=== PATIENT | female | born 1995 | race Caucasian/White ===

== ENCOUNTER 2016-06-02 20:09 | Emergency (ER) | payer BC, OTHER ==
[2016-06-02 20:15] VITALS: BP 128/61
--- NOTE | 2016-06-02 22:18 | UC ---
Back Pain HPI - HPI Summary HPI Summary: 21 YO FEMALE WITH RIGHT THORACIC BACK PAIN 2 WKS HURTS WITH LIFTING HURTS WITH DEEP BREATH OR COUGH OR SNEEZE - History of Current Complaint Chief Complaint: UCUpperExtremity Stated Complaint: RIGHT SHOULDER BLADE PAIN Time Seen by Provider: 06/02/16 22:05 Hx Obtained From: Patient Hx Last Menstrual Period: 06/02/16 Onset/Duration: Gradual Onset, Lasting Weeks - 2 Timing: Intermittent, Lasting Hours Severity Initially: Moderate Severity Currently: Mild Pain Intensity: 4 Pain Scale Used: 0-10 Numeric Back Pain: Is Discrete @ - SEE IMAGE Character: Aching, Throbbing, Spasmodic Aggravating: Movement, Lifting, Bending Associated Signs And Symptoms: Positive: Negative - Allergies/Home Medications Allergies/Adverse Reactions: Allergies Allergy/AdvReac Type Severity Reaction Status Date / Time Penicillins Allergy Unknown Unknown Verified 06/02/16 20:15 Reaction Details PMH/Surg Hx/FS Hx/Imm Hx Previously Healthy: Yes Endocrine History Of: Denies: Diabetes Cardiovascular History Of: Denies: Cardiac Disorders Respiratory History Of: Denies: Asthma - Surgical History Surgical History: None - Family History Known Family History: Positive: Hypertension - Social History Alcohol Use: Occasionally Substance Use Type: None Smoking Status (MU): Never Smoked Tobacco - Immunization History Most Recent Influenza Vaccination: none Review of Systems Constitutional: Negative Skin: Negative Eyes: Negative ENT: Negative Respiratory: Negative Cardiovascular: Negative Gastrointestinal: Negative Genitourinary: Negative Motor: Negative Neurovascular: Negative Musculoskeletal: Myalgia Neurological: Negative Psychological: Negative All Other Systems Reviewed And Are Negative: Yes Physical Exam Triage Information Reviewed: Yes Appearance: Well-Appearing, No Pain Distress, Well-Nourished Vital Signs: Initial Vital Signs Temp 98.2 F 06/02/16 20:11 Pulse 65 06/02/16 20:11 Resp 17 06/02/16 20:11 BP 128/61 06/02/16 20:11 Pulse Ox 99 06/02/16 20:11 Vital Signs Reviewed: Yes Eyes: Positive: Conjunctiva Clear ENT: Positive: Hearing grossly normal. Negative: Nasal congestion, Nasal drainage, Trismus, Muffled/hoarse voice Neck: Positive: Supple, Nontender, No Lymphadenopathy Respiratory: Positive: Lungs clear, Normal breath sounds, No respiratory distress, No accessory muscle use Cardiovascular: Positive: RRR, No Murmur Musculoskeletal: Positive: Strength Intact, ROM Intact Neurological: Positive: Alert Psychological Exam: Normal Skin Exam: Normal Back Pain Course/Dx - Differential Dx/Diagnosis Provider Diagnoses: RIGHT RHOMBOID MYOFASCIAL STRAIN /SPASM Discharge - Discharge Plan Condition: Stable Disposition: HOME Prescriptions: Cyclobenzaprine TAB* [Flexeril TAB*] 5 mg PO TID PRN #21 tab PRN Reason: Spasms Patient Education Materials: Thoracic Back Strain (ED) Referrals: Med Ryan MD [Primary Care Provider] - 2 Weeks Additional Instructions: ADVIL 3 PILLS 4X DAY WITH FOOD FOR PAIN PT CONSULT Images Front/Back of Body, Lg ([place]): 1 - TENDER HERE
== END 2016-06-02 22:31 | disposition home or self-care (01) ==
LOC: UCCORT 20:09
DX: S46.811A Strain of other muscles, fascia and tendons at shoulder and upper arm level, right arm, initial encounter (principal); X58.XXXA Exposure to other specified factors, initial encounter; Y93.9 Activity, unspecified; Y92.9 Unspecified place or not applicable; M62.830 Muscle spasm of back; Z88.0 Allergy status to penicillin
CPT/HCPCS: 99202; G0463

== ENCOUNTER 2017-11-15 17:22 | Emergency (ER) | payer SELFPAY ==
[2017-11-15 17:45] VITALS: BP 118/78
--- NOTE | 2017-11-15 18:28 | UC ---
Skin Complaint HPI - HPI Summary HPI Summary: 22-year-old female presents with onset of area of tenderness and erythema to her right lateral upper leg yesterday. States has progressively increased in size today and become more tender. Initially thought was an insect bite but no insect was seen. Denies injury, fevers, chills, or drainage. - History of Current Complaint Chief Complaint: UCSkin Time Seen by Provider: 11/15/17 18:02 Stated Complaint: SKIN CONERN Hx Obtained From: Patient Hx Last Menstrual Period: 11/04/17 ?: No Onset/Duration: Gradual Onset Skin Exposure Onset/Duration: Days Ago - 1 Onset Severity: Mild Current Severity: Mild Pain Intensity: 0 Character: Redness, Painful Aggravating Factor(s): Nothing Alleviating Factor(s): Unknown Associated Signs & Symptoms: Positive: Tenderness. Negative: Fever, Chills, Drainage, Red Streaks - Allergy/Home Medications Allergies/Adverse Reactions: Allergies Allergy/AdvReac Type Severity Reaction Status Date / Time Penicillins Allergy Intermediate Rash Verified 11/15/17 17:45 Home Medications: Home Medications Norgestimate-Ethinyl Estradiol [Sprintec 28 Day Tablet] 1 tab PO DAILY 11/15/17 [History Confirmed 11/15/17] Review of Systems Constitutional: Negative Skin: Other - See history of present illness Respiratory: Negative Motor: Negative Neurovascular: Negative Musculoskeletal: Negative Is Patient Immunocompromised?: No All Other Systems Reviewed And Are Negative: Yes PMH/Surg Hx/FS Hx/Imm Hx - Additional Past Medical History Additional PMH: Noncontributory - Surgical History Surgical History: None - Family History Known Family History: Positive: Hypertension - Social History Occupation: Employed Part-time Lives: With Family Alcohol Use: None Substance Use Type: None Smoking Status (MU): Never Smoked Tobacco - Immunization History Most Recent Influenza Vaccination: none Physical Exam Triage Information Reviewed: Yes Appearance: Well-Appearing, No Pain Distress, Well-Nourished Vital Signs: Initial Vital Signs Temp 99 F 11/15/17 17:40 Pulse 83 11/15/17 17:40 Resp 16 11/15/17 17:40 BP 118/78 11/15/17 17:40 Pulse Ox 99 11/15/17 17:40 Vital Signs Reviewed: Yes Respiratory: Positive: No respiratory distress Cardiovascular: Positive: Pulses Normal, Brisk Capillary Refill Musculoskeletal Exam: Normal Neurological: Positive: Other: - Sensation intact Skin: Positive: Other - 2.5 cm circular area of erythema and induration to right lateral upper leg with a punctate area of excoriation and crusting noted centrally. No fluctuance or drainage noted. Course/Dx - Course Course Of Treatment: 22-year-old female with 1 day history of area of erythema and tenderness to right lateral upper leg consistent with cellulitis versus early abscess. There is a 2.5 cm area of induration without any fluctuance or drainage to be cultured. Patient has history of penicillin allergy with a reaction of rash however due to low incidence of cross reaction I will treat with a seven-day course of cephalexin 500 mg 3 times a day for 7 days. Patient was made aware of the possibility of a cross reaction and knows to seek immediate medical attention in the emergency room should she develop any swelling of the lips, tongue, throat or difficulty breathing. She is to follow- up with her primary care provider in 7 days if she has no improvement or resolution of her symptoms. - Differential Diagnoses - Skin Complaint Differential Diagnoses: Abscess, Cellulitis - Diagnoses Provider Diagnoses: Cellulitis right upper leg Discharge - Sign-Out/Discharge Documenting (check all that apply): Patient Departure - Discharge Plan Condition: Stable Disposition: HOME Prescriptions: Cephalexin CAP* [Keflex 500 CAP*] 500 mg PO TID #21 cap Patient Education Materials: Cellulitis (DC) Referrals: Med Ryan MD [Primary Care Provider] - 7 Days (if no improvement) Additional Instructions: Start Keflex (cephalexin) 1 cap every 8 hours for 7 days. Be sure to finish the entire course of antibiotic even if you are feeling better. Be aware that there is a small chance of an allergic reaction to this medication when you have an allergy to penicillin however this is rare when the only reaction to penicillin is rash. Seek immediate medical attention in the emergency room if you develop rash, swelling of the lips, tongue, or throat, or any difficulty breathing. Follow up with your primary care provider in 7 days if no improvement. Seek immediate medical attention if you develop fever greater than 100.5 F, increased pain, redness, swelling, or any worsening of symptoms. Per institutional requirements, I have reviewed the chart, however, I was not consulted specifically or made aware of this patient by the above midlevel provider. I did not personally evaluate, interact with , or disposition this patient. - Billing Disposition and Condition Condition: STABLE Disposition: Home
== END 2017-11-15 18:36 | disposition home or self-care (01) ==
LOC: UCCORT 17:22
DX: L03.115 Cellulitis of right lower limb (principal); Z88.0 Allergy status to penicillin
CPT/HCPCS: 99212; G0463

== ENCOUNTER 2017-12-29 12:00 | Emergency (ER) | payer BC ==
[2017-12-29 12:46] VITALS: BP 112/66
--- NOTE | 2017-12-29 13:05 | UC ---
Skin Complaint HPI - HPI Summary HPI Summary: 22-year-old female presents with a 2 day history of pruritic full body rash. States started after she had been outdoors mowing lawn Dimitri denies any known contact with environmental irritant. She has also been on a ten-day course of Bactrim for cellulitis. She completed her last dose of this medication yesterday. Has taken [id number] diphenhydramine without any relief. Denies fever, chills, swelling of the lips, tongue, or throat, or difficulty breathing. - History of Current Complaint Chief Complaint: UCRash Time Seen by Provider: 12/29/17 12:51 Stated Complaint: SKIN COMPLAINT Hx Obtained From: Patient Hx Last Menstrual Period: 11/04/17 ?: No Onset/Duration: Sudden Onset, Lasting Days - 2 Timing: Constant Onset Severity: Mild Current Severity: Mild Pain Intensity: 0 Location: Diffuse Character: Pruritus Aggravating Factor(s): Nothing Alleviating Factor(s): Nothing Associated Signs & Symptoms: Negative: Nausea, Vomiting, Difficulty Breathing, Fever, Chills, Cough, Wheezing, Chest Pain, Throat Tightening, Abdominal Pain - Allergy/Home Medications Allergies/Adverse Reactions: Allergies Allergy/AdvReac Type Severity Reaction Status Date / Time Penicillins Allergy Intermediate Rash Verified 11/15/17 17:45 sulfamethoxazole Allergy Rash And Verified 12/29/17 13:01 [From Bactrim] Itching trimethoprim [From Bactrim] Allergy Rash And Verified 12/29/17 13:01 Itching Home Medications: Home Medications diPHENhydraMINE PO* [Benadryl PO 50 MG CAP*] 50 mg PO ONCE 12/29/17 [History Confirmed 12/29/17] Review of Systems Constitutional: Negative Skin: Rash Eyes: Negative ENT: Negative Respiratory: Negative Cardiovascular: Negative Gastrointestinal: Negative Genitourinary: Negative Is Patient Immunocompromised?: No All Other Systems Reviewed And Are Negative: Yes PMH/Surg Hx/FS Hx/Imm Hx Previously Healthy: Yes - denies significant past medical history - Surgical History Surgical History: None - Family History Known Family History: Positive: Hypertension - Social History Occupation: Employed Full-time Lives: With Family Alcohol Use: Occasionally Substance Use Type: None Smoking Status (MU): Never Smoked Tobacco - Immunization History Most Recent Influenza Vaccination: none Physical Exam Triage Information Reviewed: Yes Appearance: Well-Appearing, No Pain Distress, Well-Nourished Vital Signs: Initial Vital Signs Temp 98.3 F 12/29/17 12:39 Pulse 80 12/29/17 12:39 Resp 15 12/29/17 12:39 BP 112/66 12/29/17 12:39 Pulse Ox 100 12/29/17 12:39 Vital Signs Reviewed: Yes Eye Exam: Normal ENT: Positive: Pharynx normal, Uvula midline, Other - Airway patent. Negative: Nasal congestion, Nasal drainage, Tonsillar swelling, Tonsillar exudate Neck: Positive: Supple, Nontender, No Lymphadenopathy Respiratory: Positive: Lungs clear, Normal breath sounds, No respiratory distress Cardiovascular: Positive: RRR, No Murmur Abdomen Description: Positive: Nontender, No Organomegaly, Soft Neurological: Positive: Alert Skin: Positive: rashes - Diffuse pruritic papular rash over entire body including face. Course/Dx - Course Course Of Treatment: 22 year old female with full body pruritic rash that occurred while on Bactrim. No other cause for rash was identifiable therefore think this most likely represents a drug reaction. Patient already completed treatment but was instructed to avoid any further use of this medication. Will prescribe a course of prednisone and have her follow up with a PCP. - Differential Diagnoses - Skin Complaint Differential Diagnoses: Contact Dermatitis, Drug Rash, Medication; Adverse Reaction - Diagnoses Provider Diagnoses: Pruritic rash, suspect drug reaction Discharge - Sign-Out/Discharge Documenting (check all that apply): Patient Departure All imaging exams completed and their final reports reviewed: No Studies - Discharge Plan Condition: Stable Disposition: HOME Prescriptions: predniSONE TAB* [Deltasone 10 MG TAB*] 30 mg PO DAILY 5 Days #15 tab Patient Education Materials: Acute Rash (ED), Adverse Drug Reaction (ED) Referrals: No Primary Care Phys,NOPCP [Primary Care Provider] - Additional Instructions: I suspect that your rashes a reaction to the Bactrim that your taking. I would avoid taking this antibiotic in the future. I do recommend following up with her primary care provider in discussing possible allergy testing to confirm this suspicion. Start prednisone 30 mg once a day for 5 days. He may continue to take diphenhydramine (Benadryl) according to directions as needed for itching. This will likely cause drowsiness. Seek immediate medical attention in the emergency room if you have any swelling of the lips, tongue, or throat or have any difficulty breathing. - Billing Disposition and Condition Condition: STABLE Disposition: Home
== END 2017-12-29 13:14 | disposition home or self-care (01) ==
LOC: UCCORT 12:00
DX: L29.9 Pruritus, unspecified (principal); Z88.0 Allergy status to penicillin; Z88.1 Allergy status to other antibiotic agents
CPT/HCPCS: 99212; G0463

== ENCOUNTER 2018-09-19 13:39 | Emergency (ER) | payer BC ==
[2018-09-19 13:54] VITALS: BP 120/72
--- NOTE | 2018-09-19 13:59 | UC ---
Skin Complaint HPI - HPI Summary HPI Summary: 23-year-old female who noticed a lump on the left side of the back of her head and wanted it checked. She has had no recent illness. - History of Current Complaint Chief Complaint: UCGeneralIllness Time Seen by Provider: 09/19/18 13:47 Stated Complaint: BUMP ON NECK Hx Obtained From: Patient Hx Last Menstrual Period: 08/29/18 ?: No Onset/Duration: Gradual Onset Skin Exposure Onset/Duration: Days Ago Timing: Constant Onset Severity: Mild Current Severity: Mild Pain Intensity: 0 Location: Other - Back of head Character: Swelling Aggravating Factor(s): Other - Patient has a heart had that she needs to wear at work which sits right in that area. Alleviating Factor(s): Nothing Associated Signs & Symptoms: Positive: Negative - Allergy/Home Medications Allergies/Adverse Reactions: Allergies Allergy/AdvReac Type Severity Reaction Status Date / Time Penicillins Allergy Intermediate Rash Verified 09/19/18 13:50 cephalexin [From Keflex] Allergy Vomiting Verified 09/19/18 13:50 sulfamethoxazole Allergy Rash And Verified 09/19/18 13:50 [From Bactrim] Itching trimethoprim [From Bactrim] Allergy Rash And Verified 09/19/18 13:50 Itching PMH/Surg Hx/FS Hx/Imm Hx Previously Healthy: Yes - Surgical History Surgical History: None - Family History Known Family History: Positive: Hypertension - Social History Alcohol Use: Occasionally Substance Use Type: None Smoking Status (MU): Never Smoked Tobacco - Immunization History Most Recent Influenza Vaccination: none Review of Systems All Other Systems Reviewed And Are Negative: Yes Skin: Positive: Other - Lump on back of head occipital area. Is Patient Immunocompromised?: No Physical Exam Triage Information Reviewed: Yes Appearance: Well-Appearing, No Pain Distress, Well-Nourished Vital Signs: Initial Vital Signs Temp 99.3 F 09/19/18 13:51 Pulse 85 09/19/18 13:51 Resp 14 09/19/18 13:51 BP 120/72 09/19/18 13:51 Pulse Ox 100 09/19/18 13:51 Vital Signs Reviewed: Yes Eyes: Positive: Conjunctiva Clear ENT: Positive: Pharynx normal, TMs normal, Uvula midline Neck: Positive: Supple, Nontender, No Lymphadenopathy Respiratory: Positive: Lungs clear, Normal breath sounds, No respiratory distress, No accessory muscle use Cardiovascular: Positive: RRR, No Murmur, Pulses Normal, Brisk Capillary Refill Musculoskeletal Exam: Normal Neurological Exam: Normal Psychological Exam: Normal Skin: Positive: Other - The patient's left occipital lymph node is enlarged and minimally tender on palpation. No erythema or rashes noted. No drainage. No other head or neck lymphadenopathy. Course/Dx - Course Course Of Treatment: Patient is comfortable here and was given reassurance to follow-up if this area worsens. - Diagnoses Provider Diagnosis: Occipital lymphadenopathy Discharge - Sign-Out/Discharge Documenting (check all that apply): Patient Departure All imaging exams completed and their final reports reviewed: No Studies - Discharge Plan Condition: Fair Disposition: HOME Patient Education Materials: Lymphadenopathy (ED) Referrals: No Primary Care Phys,NOPCP [Primary Care Provider] - [facility] [Outside] Additional Instructions: Observe for any worsening symptoms. If the lymph node enlarges or becomes hot, red, tender then get rechecked. - Billing Disposition and Condition Condition: FAIR Disposition: Home - Attestation Statements Provider Attestation: I was available for consult. This patient was seen by the MUKESH. The patient was not presented to , seen by or examined by -Damian Wiggins MD
== END 2018-09-19 14:07 | disposition home or self-care (01) ==
LOC: UCCORT 13:39
DX: R59.1 Generalized enlarged lymph nodes (principal)
CPT/HCPCS: 99211; G0463

== ENCOUNTER 2018-12-03 11:51 | Emergency (ER) | payer BC ==
[2018-12-03 12:30] VITALS: BP 126/91
--- NOTE | 2018-12-03 12:43 | UC ---
Skin Complaint HPI - HPI Summary HPI Summary: Patient presents to urgent care for evaluation of a rash on her right arm. Patient states she works outside and she thinks she came in contact with something 3 or 4 days ago. Patient states is itchy and seems to be spreading. No drainage. No fevers or chills. No pain. Patient without any blisters. No others with similar symptoms at this time. Patient has tried [id number] topical hydrocortisone without improvement. Patient states she is not . Medications reviewed this visit. - History of Current Complaint Chief Complaint: UCSkin Time Seen by Provider: 12/03/18 12:31 Stated Complaint: SKIN CONCERN-RT ARM Hx Last Menstrual Period: 10/29/18, PERIODS ARE IRREGULAR, JUST CHANGED BCP ?: No Onset/Duration: Gradual Onset Skin Exposure Onset/Duration: Days Ago Pain Intensity: 0 - Allergy/Home Medications Allergies/Adverse Reactions: Allergies Allergy/AdvReac Type Severity Reaction Status Date / Time Penicillins Allergy Intermediate Rash Verified 12/03/18 12:21 cephalexin [From Keflex] Allergy Vomiting Verified 12/03/18 12:21 sulfamethoxazole Allergy Rash And Verified 12/03/18 12:21 [From Bactrim] Itching trimethoprim [From Bactrim] Allergy Rash And Verified 12/03/18 12:21 Itching Home Medications: Home Medications Hydrocortisone [Cortizone-10 Intensive He] 1 cre EX PRN 12/03/18 [History] Levonorgestrel-Ethin Estradiol [Levora 0.15/30-28 0.15-30 mg-Mcg] 1 tab PO DAILY 12/03/18 [History Confirmed 12/03/18] diPHENhydraMINE 2% CREAM(NF) [Benadryl 2% CREAM (NF)] 1 applic TOPICAL TID 12/03 [History Confirmed 12/03/18] PMH/Surg Hx/FS Hx/Imm Hx Previously Healthy: Yes - Surgical History Surgical History: None - Family History Known Family History: Positive: Hypertension, Non-Contributory - Social History Occupation: Employed Full-time Lives: With Family Alcohol Use: Occasionally Substance Use Type: None Smoking Status (MU): Never Smoked Tobacco Have You Smoked in the Last Year: No - Immunization History Most Recent Influenza Vaccination: none Review of Systems All Other Systems Reviewed And Are Negative: Yes Constitutional: Positive: Negative Skin: Positive: Rash Eyes: Positive: Negative Respiratory: Positive: Negative Physical Exam - Summary Physical Exam Summary: Vital Signs Reviewed: Yes A+Ox3, no distress Eyes: Conjunctiva Clear ENT: Hearing grossly normal, mmmoist Neck: Positive: Supple Respiratory: Positive: No respiratory distress, No accessory muscle use Musculoskeletal Exam: MCQUEEN x 4 without difficulty Strength Intact, ROM Intact Neurological: Positive: Alert, + sensation throughout Psychological: Positive: Normal Response To examiner Skin: Positive: pt with palpable hives along posterior forearm and distal humerus no open, oozing wounds. mild pruritis No concern for cellulitis Triage Information Reviewed: Yes Vital Signs: Initial Vital Signs Temp 98.6 F 12/03/18 12:23 Pulse 87 12/03/18 12:23 Resp 16 12/03/18 12:23 BP 126/91 12/03/18 12:23 Pulse Ox 98 12/03/18 12:23 Course/Dx - Course Course Of Treatment: Patient presents to urgent care for progressive hives on the posterior part of her right arm. Patient states she may have touched something outside at work earlier this week. Patient states it's been itchy at times. Patient's been using both hydrocortisone and Benadryl cream. Patient has any open wounds. Patient states strep spreading. On exam vital signs are stable. Patient does have a raised hive-appearing rash on her posterior arm. No open wounds, no concern for cellulitis We'll start patient on prednisone. Recommended over-the -counter and adrenal with sedation precautions. Return precautions discussed. Patient states understanding agreement with plan. - Diagnoses Provider Diagnosis: Urticaria Discharge ED - Sign-Out/Discharge Documenting (check all that apply): Patient Departure All imaging exams completed and their final reports reviewed: No Studies - Discharge Plan Condition: Stable Disposition: HOME Prescriptions: Famotidine TAB* [Pepcid 20 MG TAB*] 20 mg PO BID #14 tab predniSONE TAB* [Deltasone 20 MG TAB*] 20 mg PO DAILY #13 tab Patient Education Materials: Contact Dermatitis (ED) Referrals: [facility] [Outside] No Primary Care Phys,NOPCP [Primary Care Provider] - Additional Instructions: - Take prednisone exactly as prescribed until gone - starting today - Okay to take Benadryl (1-2 tablets) every 6 hours as needed. This medication may cause drowsiness - do NOT drive, operate machinery or drink alcohol while taking Benadryl -Take pepcid as prescribed - 2 times daily for 7 days -Avoid getting over heated (hot showers, hot tubs, exercise) for at least 48 hours - Try to avoid aspirin, NSAIDs (Motrin, Aleve, Naprosyn) for 2-3 days - Okay to apply cool compresses to the area of injury -Contact your doctor or return here with questions or concerns - Billing Disposition and Condition Condition: STABLE Disposition: Home
== END 2018-12-03 13:03 | disposition home or self-care (01) ==
LOC: UCCORT 11:51
DX: L50.9 Urticaria, unspecified (principal); Z88.0 Allergy status to penicillin; Z88.1 Allergy status to other antibiotic agents
CPT/HCPCS: 99212; G0463